=== PATIENT | male | born 1995 | race Caucasian/White ===

== ENCOUNTER 2018-06-01 13:07 | Inpatient (IN) | payer OTHER ==
[~2018-06-01] VITALS: Ht 175.3 cm; Wt 71.7 kg
[~2018-06-01 13:07] MED LIST: CALCIUM 500 +1 EAC5 PO; CIPRO500 MG PO; FLOMAX0.4 MG PO; HYDROCODONE-AP1 EAC6 PO; KLOR-CON 1010 MEQ PO; LEVSIN0.125 MG SUBLING; PERCOCET 7.5-31 EACH PO; PHENAZOPYRIDIN200 M2 PO; TRAMADOL HCL50 MG PO
[2018-06-01 13:52] LABS: URINE BILIRUBIN NEGATIVE (Negative); URINE BLOOD 2+ (Negative); URINE CLARITY CLEAR; URINE COLOR YELLOW; URINE GLUCOSE-RANDOM NEGATIVE (Negative); URINE KETONES NEGATIVE (Negative); URINE LEUKOCYTES-REFLEX NEGATIVE (Negative); URINE NITRITE-REFLEX NEGATIVE (Negative); URINE PROTEIN 1+ (Negative); URINE SPECIFIC GRAVITY 1.015 (1.005-1.030); URINE UROBILINOGEN 0.2 E.U./dl (0.2-1.0)
[2018-06-01 13:56] LABS: ABSOLUTE LYMPHOCYTES 1.4 thou/uL (0.8-5.3); ABSOLUTE MONOCYTES 0.6 thou/uL (0.0-1.2); ABSOLUTE NEUTROPHILS 8.8 thou/uL (1.6-8.1); BASOPHILS 0.4 %; EOSINOPHILS 0.4 %; HEMATOCRIT 41.3 % (42.0-52.0); HEMOGLOBIN 13.9 gm/dL (14.0-18.0); LYMPHOCYTES 13.2 %; MCH 28.9 pg (26.0-34.0); MCHC 33.6 g/dL (28.0-37.0); MCV 86.1 fL (80.0-100.0); MONOCYTES 5.7 %; NUCLEATED RBCS 0 /100WBC; PLATELET COUNT* 306 thou/uL (150-400); POLYS 80.3 %; RBC 4.79 mil/uL (4.50-6.00); RDW-CV 12.7 % (10.5-14.5); WBC 10.9 thou/uL (4.0-11.0)
[2018-06-01 14:00] LABS: BACTERIA-REFLEX None Seen /HPF (None Seen); CASTS None Seen /LPF (None Seen); MUCUS None Seen strn/LPF (None Seen); SQUAMOUS NONE SEEN /LPF (0-3); URINE RBC 3-10 Few /HPF (0-2); URINE WBC-REFLEX None Seen /HPF (0-5)
[2018-06-01 14:01] LABS: AMORPHOUS PHOSPHATES Moderate /LPF (None Seen)
[2018-06-01 14:09] LABS: CALCIUM 9.4 mg/dL (8.5-10.1); POTASSIUM 3.7 mmol/L (3.5-5.1)
[2018-06-01 14:13] LABS: ALBUMIN 4.5 g/dL (3.4-5.0); TOTAL BILIRUBIN 1.3 mg/dL (<0.1-1.0); TOTAL PROTEIN 7.9 g/dL (6.4-8.2)
--- NOTE | 2018-06-01 14:23 | NUR ---
RAJENDRA) NOTIFIED UPON PT RETURN FROM CT.PT WAS NOT CONNECTED TO MONITOR HE WAS NOT CONNECTED PRIOR TO GOING TO CT
[2018-06-01 17:08] LABS: AMP/METHAMP Negative (Negative); BARBITURATES Negative (Negative); BENZODIAZEPINES Negative (Negative); COCAINE Negative (Negative); METHADONE Negative (Negative); OPIATES Negative (Negative); PCP Negative (Negative); THC Negative (Negative)
[2018-06-01 17:42] VITALS: BP 114/62
[2018-06-01 18:15] VITALS: BP 114/72
--- NOTE | 2018-06-01 19:10 | NUR ---
PATIENT A&OX4, ROOM AIR, IV RIGHT AC FLUIDS INFUSSING. UP INDEPENDENTLY. NO C/O PAIN/N/V AT THIS TIME. R/O RIGHT FLANK PAIN, WELL MANAGED WITH PAIN MEDICATION. ARRIVED ON UNIT AT 1800; REPORT RECIEVED FROM JULISSA. OREINTED TO ROOM, ALL BELONGINGS WITHIN REACH, CALL LIGHT AT BEDSIDE. ADM ASSESSMENT COMPLETED AND DOCUMENTED. INSTRUCTED TO STRAIN URINE, STRAINER IN BATHROOM. NO OTHER CONCERNS AT THIS TIME. APPROPRAITE AND COOPORATIVE WITH CARE.
[2018-06-01 21:15] VITALS: BP 121/66
[2018-06-02 03:55] LABS: ABSOLUTE EOSINOPHILS 0.1 thou/uL (0.0-0.7); ABSOLUTE LYMPHOCYTES 1.9 thou/uL (0.8-5.3); ABSOLUTE MONOCYTES 0.6 thou/uL (0.0-1.2); ABSOLUTE NEUTROPHILS 5.2 thou/uL (1.6-8.1); BASOPHILS 0.3 %; EOSINOPHILS 0.7 %; HEMATOCRIT 36.7 % (42.0-52.0); HEMOGLOBIN 12.3 gm/dL (14.0-18.0); LYMPHOCYTES 24.3 %; MCH 29.4 pg (26.0-34.0); MCHC 33.6 g/dL (28.0-37.0); MCV 87.3 fL (80.0-100.0); MONOCYTES 7.7 %; MPV 8.5 fl. (7.2-11.1); NUCLEATED RBCS 0 /100WBC; PLATELET COUNT* 249 thou/uL (150-400); RDW-CV 12.8 % (10.5-14.5); WBC 7.7 thou/uL (4.0-11.0)
[2018-06-02 04:14] LABS: CALCIUM 8.5 mg/dL (8.5-10.1); CREATININE 0.8 mg/dL (0.6-1.3); POTASSIUM 3.6 mmol/L (3.5-5.1)
--- NOTE | 2018-06-02 05:23 | NUR ---
PATIENT SLEPT PART OF THE NIGHT. IV FLUIDS CONTINUE TO INFUSE AT 100 ML/HR. PATIENT WAS GIVEN PAIN MEDICINE ONCE THIS SHIFT. PATIENT HAS BEEN NPO SINCE MIDNIGHT INCASE OF A PROCEDURE TODAY. WILL CONTINUE TO MONITOR.
[2018-06-02 07:45] VITALS: BP 122/65
--- NOTE | 2018-06-02 12:17 | NUR ---
Pt meeting with a doctor at time of SW to attempt to meet with pt. Pt nurse says that pt may dc home today with no dc needs expressed at this time. From previous record, Pt lives at home with mother available for support or assist if needed. SW to remain available if needed to assist with safe dc planning.
[2018-06-02] MEDS ORDERED: HYDROCODONE-AP1 EAC6 PO (13:32)
[2018-06-02 13:33] VITALS: BP 122/65
--- NOTE | 2018-06-02 15:15 | NUR ---
PATIENT OK TO DISCHARGED PER UROLOGY AND DR. BARBER. URINAL/STRAINER/SPECIMEN CUP GIVEN TO TAKE HOME. KUB DONE THIS AFTERNOON, RESULTS LEFT WITH DR. JAMA'S OFFICE. IV DC'D. VERBALIZES UNDERSTANDING OF DISCHARGE PAPERWORK AND SCRIPT. PATIENT CALLED AND MADE APPT WITH UROLOGY PRIOR TO DC. PATIENT AMBULATED OUT WITH NURSING STAFF AND ALL BELONGINGS.
== END 2018-06-02 15:36 | disposition home or self-care (01) | DRG 694 ==
LOC: M.ERS 13:07 → M.3W 16:53 → M.TBA-ER 16:53 → M.3W 17:56
PROVIDERS: Physician Assistant; ADMIT Internal Medicine
DX: N13.1 Hydronephrosis with ureteral stricture, not elsewhere classified (principal); N13.2 Hydronephrosis with renal and ureteral calculous obstruction; E86.0 Dehydration; Z79.899 Other long term (current) drug therapy; Z84.1 Family history of disorders of kidney and ureter